=== PATIENT | female | born 1985 | race Caucasian/White ===

== ENCOUNTER 2016-10-08 19:22 | Emergency (ER) | payer MEDICAID ==
--- NOTE | 2016-10-08 21:12 | ER Document Report ---
ED Skin Rash/Insect Bite/Abscs - General Chief Complaint: Rash Stated Complaint: RASH Time Seen by Provider: 10/08/16 21:03 Notes: 30 yo female c/o rash under both arms x 1 week. burning and itching. no new contacts TRAVEL OUTSIDE OF THE [place] IN LAST 30 DAYS: No - HPI Patient complains to provider of: Skin rash/lesion Onset: Last week Onset/Duration: Gradual, Worse Quality of pain: Burning, Other - itching Skin Character: Rash Skin Temperature: Warm Quality of rash: Itchy, Painful Identify cause: No - Related Data Allergies/Adverse Reactions: acetaminophen [From Percocet] Allergy (Verified 10/08/16 19:28) oxycodone HCl [From Percocet] Allergy (Verified 10/08/16 19:28) Past Medical History - General Information source: Patient - Social History Smoking Status: Current Every Day Smoker Frequency of alcohol use: None Drug Abuse: None Lives with: Family Family History: Reviewed & Not Pertinent - Medical History Medical History: Negative Endocrine Medical History: Reports: Hx Hypothyroidism. Denies: Hx Diabetes Mellitus Type 2 Renal/ Medical History: Denies: Hx Peritoneal Dialysis Past Surgical History: Reports: Hx Breast Surgery - cyst right breast, Hx Thyroid Surgery - removed - Immunizations Immunizations up to date: No Hx Diphtheria, Pertussis, Tetanus Vaccination: No - unknown Review of Systems - Review of Systems Constitutional: No symptoms reported EENT: No symptoms reported Cardiovascular: No symptoms reported Respiratory: No symptoms reported Gastrointestinal: No symptoms reported Genitourinary: No symptoms reported Female Genitourinary: No symptoms reported Musculoskeletal: No symptoms reported Skin: No symptoms reported Hematologic/Lymphatic: No symptoms reported Neurological/Psychological: No symptoms reported -: Yes All other systems reviewed and negative Physical Exam - Vital signs Vitals: Temp Pulse Resp BP Pulse Ox 98.2 F 99 16 125/76 98 10/08/16 19:30 10/08/16 19:30 10/08/16 19:30 10/08/16 19:30 10/08/16 19:30 Interpretation: Normal - General General appearance: Appears well, Alert - HEENT Head: Normocephalic, Atraumatic Eyes: Normal Pupils: PERRL - Respiratory Respiratory status: No respiratory distress Chest status: Nontender Breath sounds: Normal Chest palpation: Normal - Cardiovascular Rhythm: Regular Heart sounds: Normal auscultation Murmur: No - Abdominal Inspection: Normal Distension: No distension Bowel sounds: Normal Tenderness: Nontender Organomegaly: No organomegaly - Back Back: Normal, Nontender - Extremities General upper extremity: Normal inspection, Nontender, Normal color, Normal ROM , Normal temperature General lower extremity: Normal inspection, Nontender, Normal color, Normal ROM , Normal temperature, Normal weight bearing. No: Abigail's sign - Neurological Neuro grossly intact: Yes Cognition: Normal Orientation: AAOx4 [place] Coma Scale Eye Opening: Spontaneous [place] Coma Scale Verbal: Oriented Ian Coma Scale Motor: Obeys Commands Ian Coma Scale Total: 15 Speech: Normal Motor strength normal: LUE, RUE, LLE, RLE Sensory: Normal - Psychological Associated symptoms: Normal affect, Normal mood - Skin Skin Temperature: Warm Skin Moisture: Dry Skin Color: Normal Skin irregularity: Rash Location of irregularity: Other - axilla Character of irregularity: Other - pustular, follicular in origin Notes: scattered erythematous papulo-pustular lesions to bilat axilla. + peeling. Course - Vital Signs Vital signs: Temp Pulse Resp BP Pulse Ox 98.2 F 99 16 125/76 98 10/08/16 19:30 10/08/16 19:30 10/08/16 19:30 10/08/16 19:30 10/08/16 19:30 Discharge - Discharge Clinical Impression: Rash Condition: Stable Disposition: HOME, SELF-CARE Instructions: Antibiotic Therapy ([facility]), Topical Steroid Cream or Ointment ([facility]) Additional Instructions: make cool compress with [place]ome[place]'s solution, apply to rash for 10-15 min prior to steroid cream application take antibiotic as prescribed follow up with primary care if symptoms persist Prescriptions: Calcium Acetate/Aluminum Sulf [[place] Packet] 1 each TP TID #30 packet Cephalexin Monohydrate [Keflex 500 mg Capsule] 500 mg PO QID #20 capsule Triamcinolone Acetonide [Aristocort 0.025% Cream] 1 applic TP BID #30 gram
[2016-10-08] MEDS ORDERED: CEPHALEXIN 500 MG CAPSULE PO ONE (21:19)
[2016-10-08 21:37] VITALS: BP 119/67
== END 2016-10-08 21:30 | disposition home or self-care (01) ==
LOC: ER 19:22
DX: L08.0 Pyoderma (principal); L29.8 Other pruritus; F17.200 Nicotine dependence, unspecified, uncomplicated; Z88.5 Allergy status to narcotic agent
CPT/HCPCS: 99282

== ENCOUNTER 2018-12-24 16:41 | Emergency (ER) | payer SELFPAY ==
[2018-12-24 17:28] VITALS: BP 111/68
[2018-12-24] MEDS ORDERED: LIDOCAINE 2% VISCOUS SOLN 20 ML UDCUP PO ONE (17:51)
[2018-12-24] MEDS ORDERED: PENICILLIN V POTASSIUM 500 MG TABLET PO ONE (17:51)
[2018-12-24] MEDS ORDERED: KETOROLAC TROMETHAMINE 60 MG/2 ML SDV IM ONE (17:51)
--- NOTE | 2018-12-24 17:56 | ER Document Report ---
ED Oral Problem - General Chief Complaint: Toothache Stated Complaint: TOOTH PAIN Time Seen by Provider: 12/24/18 17:48 Primary Care Provider: BLAKE FAROOQ MD [Primary Care Provider] - Follow up as needed Mode of Arrival: Ambulatory Information source: Patient Notes: 33-year-old female presented to ED for dental pain for tooth #17, 18, and 19. These 3 teeth are very decayed with redness surrounding the teeth. She states the pain is very throbbing and she needs some antibiotics for the pain. She states she cannot go to the dentist today. TRAVEL OUTSIDE OF THE [place] IN LAST 30 DAYS: No - HPI Patient complains to provider of: Swelling of jaw, Toothache Onset: Last week Onset: Gradual Quality of pain: Sharp, Throbbing Severity: Moderate Pain Level: 3 Sore throat: Moderate Swollen jaw/face: Moderate Associated symptoms: Toothache Worsened by: Cold Relieved by: Nothing Similar symptoms previously: Yes Recently seen / treated by doctor/dentist: No - Related Data Allergies/Adverse Reactions: acetaminophen [From Percocet] Allergy (Verified 12/24/18 17:48) oxycodone HCl [From Percocet] Allergy (Verified 12/24/18 17:48) Past Medical History - General Information source: Patient - Social History Smoking Status: Current Every Day Smoker Cigarette use (# per day): Yes - 3 cigarettes a day Chew tobacco use (# tins/day): No Smoking Education Provided: Yes - 4 minutes Frequency of alcohol use: None Drug Abuse: None Occupation: Housekeeping Lives with: Family Family History: Reviewed & Not Pertinent Patient has suicidal ideation: No Patient has homicidal ideation: No - Past Medical History Cardiac Medical History: Reports: None Pulmonary Medical History: Reports: None EENT Medical History: Reports: None Neurological Medical History: Reports: None Endocrine Medical History: Reports: Hx Hypothyroidism Renal/ Medical History: Reports: None Malignancy Medical History: Reports: None GI Medical History: Reports: None Musculoskeletal Medical History: Reports None Skin Medical History: Reports None Psychiatric Medical History: Reports: None Traumatic Medical History: Reports: None Infectious Medical History: Reports: None Past Surgical History: Reports: Hx Breast Surgery - cyst right breast, Hx Thyroid Surgery - removed - Immunizations Immunizations up to date: No Hx Diphtheria, Pertussis, Tetanus Vaccination: No - unknown Review of Systems - Review of Systems Constitutional: No symptoms reported EENT: Mouth pain, Mouth swelling, Dental problem Cardiovascular: No symptoms reported Respiratory: No symptoms reported Gastrointestinal: No symptoms reported Genitourinary: No symptoms reported Female Genitourinary: No symptoms reported Musculoskeletal: No symptoms reported Skin: No symptoms reported Hematologic/Lymphatic: No symptoms reported Neurological/Psychological: No symptoms reported -: Yes All other systems reviewed and negative Physical Exam - Vital signs Vitals: Temp Pulse Resp BP Pulse Ox 98.3 F 78 16 111/68 100 12/24/18 17:26 12/24/18 17:26 12/24/18 17:26 12/24/18 17:26 12/24/18 17:26 Interpretation: Normal - General General appearance: Appears well, Alert - HEENT Head: Normocephalic, Atraumatic Eyes: Normal Pupils: PERRL Ears: Normal External canal: Normal Tympanic membrane: Normal Sinus: Normal Nasal: Normal Mouth/Lips: Caries Mucous membranes: Normal Teeth diagram: 1 - Dental pain decay swelling around the teeth Pharynx: Normal Neck: Anterior cervical chain - Respiratory Respiratory status: No respiratory distress Chest status: Nontender Breath sounds: Normal Chest palpation: Normal - Cardiovascular Rhythm: Regular Heart sounds: Normal auscultation Murmur: No - Abdominal Inspection: Normal Distension: No distension Bowel sounds: Normal Tenderness: Nontender Organomegaly: No organomegaly - Back Back: Normal, Nontender - Extremities General upper extremity: Normal inspection, Nontender, Normal color, Normal ROM, Normal temperature General lower extremity: Normal inspection, Nontender, Normal color, Normal ROM, Normal temperature, Normal weight bearing. No: Abigail's sign - Neurological Neuro grossly intact: Yes Cognition: Normal Orientation: AAOx4 Ian Coma Scale Eye Opening: Spontaneous [place] Coma Scale Verbal: Oriented [place] Coma Scale Motor: Obeys Commands Ian Coma Scale Total: 15 Speech: Normal Motor strength normal: LUE, RUE, LLE, RLE Sensory: Normal - Psychological Associated symptoms: Normal affect, Normal mood - Skin Skin Temperature: Warm Skin Moisture: Dry Skin Color: Normal Course - Re-evaluation Re-evalutation: 12/25/18 03:36 Presentation is most consistent with likely an infected tooth. Airway is patent. Vitals within normal limits. Patient is able swallow without any difficulty. There is no significant facial swelling. No evidence of Frank angina, apical abscess, or airway obstruction. Patient will be started on antibiotics. I've instructed to follow-up with dentistry as earliest ability for definitive management. At this time will discharge with return precautions and follow-up recommendations. Verbal discharge instructions given a the bedside and opportunity for questions given. Medication warnings reviewed. Patient is in agreement with this plan and has verbalized understanding of return precautions and the need for primary care follow-up in the next 24-72 hours. - Vital Signs Vital signs: Temp Pulse Resp BP Pulse Ox 98.3 F 78 16 111/68 100 12/24/18 17:26 12/24/18 17:26 12/24/18 17:26 12/24/18 17:26 12/24/18 17:26 Discharge - Discharge Clinical Impression: Pain due to dental caries Condition: Stable Disposition: HOME, SELF-CARE Instructions: Family Physicians / Practices Additional Instructions: TOOTHACHE: Your pain is due to dental decay. The tooth must be repaired in order for you to feel better. You will, therefore, be referred to a dentist. We do not have dentists on the staff at [facility]. Severe swelling or drainage around a tooth usually means a dental abscess. This also requires evaluation and treatment by the dentist, but antibiotics may be prescribed while awaiting dental treatment. You should be rechecked immediately if you develop major swelling of the face, increasing pain, a lump in the jaw or gums, headache, difficulty swallowing, or fever. PENICILLIN V K: You have been given a prescription for Penicillin VK. Your physician has determined that this is the best antibiotic for your condition. Pen VK can be taken with meals, however more of the antibiotic gets into the bloodstream if it's taken on an empty stomach. Penicillin usually has no side effects. However, allergy to penicillins is common. If you have had an allergic reaction to any drug of the penicillin family, you should never take any other penicillin. Notify your doctor at once if you develop hives, itching, swelling, faintness, or shortness of breath. Ibuprofen Ibuprofen is an excellent, safe drug for pain control. In addition, it has potent antiinflammatory effects which are beneficial, especially in the treatment of injuries, arthritis, or tendonitis. It's best to take ibuprofen with food. Persons with ulcer disease or allergy to aspirin should notify their physician of this before taking ibuprofen. Take the medication exactly as prescribed. Don't take additional doses unless instructed to do so by your doctor. If you develop wheezing, shortness of breath, hives, faintness, stomach pain, vomiting, or dark black stools, return for re-evaluation at once. You have been given viscous lidocaine and a syringe. Please put a small amount of this on your tooth every 3-4 hours as needed for pain. Do not use more often than every 3-4 hours or it can cause the layers of your skin to become very sore. Please follow-up with the dentist as soon as possible you may need to have these teeth pulled by an oral surgeon. FOLLOW-UP CARE: You have been referred for follow-up care to the dentists listed below. Call the dentists office for an appointment as you were instructed or within the next two days. If you experience worsening or a significant change in your symptoms, notify the physician immediately or return to the Emergency Department at any time for re-evaluation. [facility] [address] [place] [address] [facility] [address] [facility] [address] [facility] Emergency Department [facility] [address] [email or web address] [address] [place] [address] Monday- 8:00am to 5:00 pm Will see patients from other [facility]. Charges based on income and family size and accepts Medicare, Medicaid, and Insurances Will pull molars [facility] [employer] [facility] [id number] Hours of Operation 8:00 am - 4:30 pm weekdays The following dental offices accept Medicaid: [facility] [address] [place] [address] [place] Dr. Ace Ryne Hinojosa, [place], and N[place] oral surgery Dr. Costello ([place]) Dr. Casas ([place]) [facility] Drs. Grimm ([place]) Dr. Diego ([place]) [facility] Dr. Patterson ([place]) Drs. Rice and ([place]) Medicaid Care Line Prescriptions: Ibuprofen [Motrin 800 mg Tablet] 800 mg PO Q8H PRN #30 tab PRN Reason: Penicillin V Potassium [Penicillin Vk 500 mg Tablet] 500 mg PO BID #20 tablet Forms: Smoking Cessation Education, Return to Work Referrals: BLAKE FAROOQ MD [Primary Care Provider] - Follow up as needed
[2018-12-24] MEDS ORDERED: KETOROLAC TROMETHAMINE 60 MG/2 ML SDV ONE (18:00)
[2018-12-24] MEDS ORDERED: PENICILLIN V POTASSIUM 500 MG TABLET ONE (18:00)
[2018-12-24] MEDS ORDERED: LIDOCAINE 2% VISCOUS SOLN 20 ML UDCUP ONE (18:00)
== END 2018-12-24 18:27 | disposition home or self-care (01) ==
LOC: ER 16:41
DX: K02.9 Dental caries, unspecified (principal); K08.89 Other specified disorders of teeth and supporting structures; R22.0 Localized swelling, mass and lump, head; F17.210 Nicotine dependence, cigarettes, uncomplicated
CPT/HCPCS: J1885; J3490; 96372; 99282; 99406